=== PATIENT | male | born 1965 | race Caucasian/White ===

== ENCOUNTER 2017-12-29 07:24 | Day surgery (SDC) | payer OTHER ==
[2017-12-29] MEDS ORDERED: ASPIRIN EC 325 MG TAB PO ONE (07:30)
[2017-12-29] MEDS ORDERED: NS 1,000 ML IV ONE (07:30)
[2017-12-29] MEDS ORDERED: DIAZEPAM 5 MG TAB PO ONE (07:30)
[2017-12-29] MEDS ORDERED: diphenhydrAMINE 25 MG CAP PO ONE (07:30)
[2017-12-29] MEDS ORDERED: FAMOTIDINE 20 MG TAB PO ONE (07:30)
--- NOTE | 2017-12-29 07:47 | CPEKG ---
Heart Rate: 86 RR Interval: 698 P-R Interval: 152 QRSD Interval: 94 QT Interval: 376 QTC Interval: 450 P [place]: 20 QRS [place]: 0 T Wave [place]: -5 EKG Severity - BORDERLINE ECG - EKG Impression: SINUS RHYTHM EKG Impression: BORDERLINE T ABNORMALITIES, INFERIOR LEADS Electronically Signed By: Hong Yanes 29-Dec-2017 09:05:59
[2017-12-29 08:09] LABS: PLATELET COUNT 231 10^3/uL (150-400)
[2017-12-29 08:23] LABS: INR 0.97 (0.83-1.16); PROTIME(PATIENT) 13.1 SEC (12.0-15.0)
[2017-12-29] MEDS ORDERED: fentaNYL 100 MCG/2 ML INJ ONE ×2 (09:11→09:57)
[2017-12-29] MEDS ORDERED: LIDOCAINE 1% 300 MG/30 ML SDV ONE (09:11)
[2017-12-29] MEDS ORDERED: MIDAZOLAM 2 MG/2 ML VIAL ONE ×2 (09:12→09:57)
[2017-12-29] MEDS ORDERED: IOPAMIDOL (ISOVUE-370) 150 ML BTL IV ONE (09:12)
--- NOTE | 2017-12-29 09:28 | PDGENHP ---
History & Physical Chief Complaint: SOB, abnormal MPI History of Present Illness: 52 yo M with BROOKS, CAD, lateral ischemia on MPI needs coronary angiogram Pertinent Past, Social, Family History: reviewed Relevant Physical Exam: RRR no m/r/g. Lungs CTAB Cardiorespiratory Assessment: stable for moderate sedation
--- NOTE | 2017-12-29 09:31 | PDPROPOC ---
Sedation Plan of Care Sedation Plan of Care: vital signs stable, mental status noted, patient educated of risks, benefits, alternatives, patient can tolerate sedation ASA Classification: ASA 2 Planned drugs: fentanyl, midazolam Mallampati Score: Class 2 Mallampati Reference Image: Patient passed 3-3-2 rule?: Yes
[2017-12-29] MEDS ORDERED: NITROGLYCERIN 0.4 MG BTL SL PRN (10:39)
[2017-12-29] MEDS ORDERED: ONDANSETRON 4 MG/2 ML VIAL IVP PRN (10:39)
[2017-12-29] MEDS ORDERED: OXYCODONE/APAP 5/325 TAB PO PRN (10:39)
[2017-12-29] MEDS ORDERED: HYDROCODONE/APAP 5/325 TAB PO PRN (10:39)
[2017-12-29] MEDS ORDERED: ATROPINE SULFATE 1 MG/10 ML SYR IVP PRN (10:39)
--- NOTE | 2017-12-29 10:42 | POSTOPPROG ---
Post Op Note Date of Operation: 12/29/17 Surgeon: Perla Eid Anesthesia: IV Sedation Pre-op Diagnosis: BROOKS, abnl MPI Post-op Diagnosis: minimal CAD Indication: abnl MPI Procedure: LHC/cor angio/LV gram Findings: minimal CAD Inf/Abcess present in the surg proc area at time of surgery?: No EBL: Minimal Complications: none Drains: Other (none)
--- NOTE | 2017-12-29 14:25 | CPIP ---
[f rep st] INVASIVE CARDIAC PROCEDURE DATE OF PROCEDURE: 12/29/2017 INDICATIONS: Exertional dyspnea and abnormal nuclear stress test showing lateral ischemia. Preop fo r lung surgery. PROCEDURES: 1. Left heart catheterization. 2. Coronary angiography. 3. Left ventriculography. COMPLICATIONS: None. DESCRIPTION OF PROCEDURE: N.p.o. status was confirmed, informed consent obtained, and timeout perfor med. The patient was brought to the catheterization laboratory and prepped and draped in sterile fas hion. Adequate conscious sedation was achieved with Versed and fentanyl IV. 1% lidocaine was used f or local anesthesia of the right femoral region. Using modified Seldinger technique, a 6-Upper Sorbian intr oducer sheath was placed in the right common femoral artery. JL4, JR4, and pigtail catheters were us ed for coronary angiography and left ventriculography respectively. FINDINGS: 1. The left main bifurcates into the LAD and left circumflex. There is a very small amount of plaqu e in the distal left main without any flow limitation. 2. The LAD reaches the apex. There are 2 principal diagonal branches. Minimal luminal irregulariti es. 3. The left circumflex has 2 large obtuse marginals. There is approximately 30% stenosis of the lef t circumflex after the 2nd obtuse marginal. 4. The right coronary artery is dominant. There is no significant coronary disease. Left ventriculography: Left ventricular ejection fraction is normal at 65%. Normal wall motion. No significant mitral regurgitation. Hemodynamics: Aortic pressure 99/56, LV pressure 109/4 with an end-diastolic pressure of 17. There is no significant gradient upon pullback from the catheter from the left ventricle to the aorta. CONCLUSIONS: 1. Minimal coronary disease in the right dominant system. 2. Normal left ventricular systolic function. 3. Patient's dyspnea is unlikely to be cardiac in origin. 4. The patient's femoral arteriotomy site was sealed with an Angio-Seal and was taken to in stable condition. /[id number]/MODL
== END 2017-12-29 14:03 | disposition home or self-care (01) ==
LOC: FCATH 07:24
PROVIDERS: ATTEND Internal Medicine Cardiovascular Disease
DX: I25.10 Atherosclerotic heart disease of native coronary artery without angina pectoris (principal); R06.09 Other forms of dyspnea; J98.6 Disorders of diaphragm; E11.9 Type 2 diabetes mellitus without complications; E78.5 Hyperlipidemia, unspecified; I10 Essential (primary) hypertension; G47.33 Obstructive sleep apnea (adult) (pediatric)
CPT/HCPCS: C1760; J1644; J2250; J3010; Q9967

== ENCOUNTER → 2018-03-17 | Outpatient (CLI) | payer OTHER | LOC: CIMAGING 13:56 | PROVIDERS: ATTEND Family Medicine | DX: J98.6 Disorders of diaphragm (principal); J90 Pleural effusion, not elsewhere classified; J98.11 Atelectasis; R91.8 Other nonspecific abnormal finding of lung field; Z98.890 Other specified postprocedural states | CPT/HCPCS: 71046-PO ==